=== PATIENT | female | born 1975 | race African-American/Black ===

== ENCOUNTER 2017-11-17 04:15 | Emergency (ER) | payer OTHER ==
[~2017-11-17] VITALS: Ht 152.4 cm; Wt 79.4 kg
[~2017-11-17 04:15] MED LIST: NEXIUM40 MG PO; PRILOSEC 20 MG20 MG
[2017-11-17 04:45] LABS: URINE BILIRUBIN NEGATIVE (Negative); URINE BLOOD NEGATIVE (Negative); URINE CLARITY CLEAR; URINE COLOR YELLOW; URINE GLUCOSE-RANDOM NEGATIVE (Negative); URINE KETONES NEGATIVE (Negative); URINE LEUKOCYTES-REFLEX NEGATIVE (Negative); URINE NITRITE-REFLEX NEGATIVE (Negative); URINE PROTEIN NEGATIVE (Negative); URINE UROBILINOGEN 0.2 E.U./dl (0.2-1.0)
[2017-11-17 04:47] LABS: ABSOLUTE EOSINOPHILS 0.1 thou/uL (0.0-0.7); ABSOLUTE LYMPHOCYTES 2.7 thou/uL (0.8-5.3); ABSOLUTE MONOCYTES 1.1 thou/uL (0.0-1.2); ABSOLUTE NEUTROPHILS 5.4 thou/uL (1.6-8.1); BASOPHILS 0.4 %; EOSINOPHILS 0.7 %; HEMOGLOBIN 12.7 gm/dL (12.0-15.0); LYMPHOCYTES 28.8 %; MCH 25.5 pg (26.0-34.0); MCHC 32.6 g/dL (28.0-37.0); MCV 78.2 fL (80.0-100.0); MONOCYTES 11.5 %; MPV 7.5 fl. (7.2-11.1); NUCLEATED RBCS 0 /100WBC; PLATELET COUNT* 265 thou/uL (150-400); POLYS 58.6 %; RBC 4.99 mil/uL (4.20-5.00); RDW-CV 14.4 % (10.5-14.5); WBC 9.3 thou/uL (4.0-11.0)
[2017-11-17 04:53] LABS: CALCIUM 8.6 mg/dL (8.5-10.1); POTASSIUM 3.8 mmol/L (3.5-5.1)
[2017-11-17 04:58] LABS: ALBUMIN 3.6 g/dL (3.4-5.0); TOTAL BILIRUBIN 0.3 mg/dL (<0.1-1.0); TOTAL PROTEIN 7.4 g/dL (6.4-8.2)
[2017-11-17] MEDS ORDERED: ZOFRAN ODT4 MG PO (06:56)
[2017-11-17] MEDS ORDERED: NORCO 5-325 TA1 EACH PO (06:56)
[2017-11-17 08:13] VITALS: BP 151/101
== END 2017-11-17 08:14 | disposition home or self-care (01) ==
LOC: M.ERS 04:15
PROVIDERS: Personal Emergency Response Attendant
DX: N13.30 Unspecified hydronephrosis (principal); R10.2 Pelvic and perineal pain; Z98.890 Other specified postprocedural states; Z90.49 Acquired absence of other specified parts of digestive tract

== ENCOUNTER 2018-11-05 03:40 | Emergency (ER) | payer OTHER ==
[~2018-11-05] VITALS: Ht 152.4 cm; Wt 81.2 kg
[~2018-11-05 03:40] MED LIST changes: +NORCO 5-325 TA1 EACH PO; +ZOFRAN ODT4 MG PO
[2018-11-05] MEDS ORDERED: VALIUM5 MG PO (04:21)
[2018-11-05] MEDS ORDERED: TORADOL 10 MG T10 MG PO (04:21)
[2018-11-05 04:26] VITALS: BP 159/70
== END 2018-11-05 04:28 | disposition home or self-care (01) ==
LOC: M.ERS 03:40
DX: M79.18 Myalgia, other site (principal); H92.02 Otalgia, left ear; L53.9 Erythematous condition, unspecified; M54.2 Cervicalgia; Z90.49 Acquired absence of other specified parts of digestive tract; Z98.890 Other specified postprocedural states

== ENCOUNTER 2019-12-09 04:34 | Emergency (ER) | payer OTHER ==
[~2019-12-09] VITALS: Ht 152.4 cm; Wt 77.1 kg
[~2019-12-09 04:34] MED LIST changes: +TORADOL 10 MG T10 MG PO; +VALIUM5 MG PO
[2019-12-09 04:59] LABS: URINE BILIRUBIN NEGATIVE (Negative); URINE BLOOD NEGATIVE (Negative); URINE CLARITY CLEAR; URINE COLOR YELLOW; URINE GLUCOSE-RANDOM NEGATIVE (Negative); URINE KETONES NEGATIVE (Negative); URINE LEUKOCYTES-REFLEX NEGATIVE (Negative); URINE NITRITE-REFLEX NEGATIVE (Negative); URINE PROTEIN NEGATIVE (Negative); URINE SPECIFIC GRAVITY 1.015 (1.005-1.030)
[2019-12-09 05:46] LABS: ABSOLUTE BASOPHILS 0.1 thou/uL (0.0-0.2); ABSOLUTE EOSINOPHILS 0.2 thou/uL (0.0-0.7); ABSOLUTE LYMPHOCYTES 2.4 thou/uL (0.8-5.3); ABSOLUTE MONOCYTES 1.1 thou/uL (0.0-1.2); ABSOLUTE NEUTROPHILS 6.5 thou/uL (1.6-8.1); BASOPHILS 0.9 %; HEMATOCRIT 39.2 % (37.0-47.0); HEMOGLOBIN 13.1 gm/dL (12.0-15.0); LYMPHOCYTES 23.2 %; MCH 25.9 pg (26.0-34.0); MCHC 33.4 g/dL (28.0-37.0); MCV 77.6 fL (80.0-100.0); MONOCYTES 10.4 %; MPV 7.8 fl. (7.2-11.1); NUCLEATED RBCS 0 /100WBC; PLATELET COUNT* 296 thou/uL (150-400); POLYS 63.5 %; RBC 5.05 mil/uL (4.20-5.00); RDW-CV 14.9 % (10.5-14.5); WBC 10.1 thou/uL (4.0-11.0)
[2019-12-09 05:59] LABS: CALCIUM 8.1 mg/dL (8.5-10.1)
[2019-12-09] MEDS ORDERED: FLAGYL500 M1 PO (09:14)
[2019-12-09] MEDS ORDERED: NORCO 5-325 TA1 EAC1 PO (09:14)
[2019-12-09] MEDS ORDERED: CIPROFLOXACIN500 M1 PO (09:14)
[2019-12-09 09:21] VITALS: BP 131/76
== END 2019-12-09 09:22 | disposition home or self-care (01) ==
LOC: M.ERS 04:34
PROVIDERS: Emergency Medicine
DX: N83.202 Unspecified ovarian cyst, left side (principal); K52.9 Noninfective gastroenteritis and colitis, unspecified; K21.9 Gastro-esophageal reflux disease without esophagitis; Z90.710 Acquired absence of both cervix and uterus; Z98.51 Tubal ligation status

== ENCOUNTER 2020-02-07 19:12 | Emergency (ER) | payer OTHER ==
[~2020-02-07] VITALS: Ht 152.4 cm; Wt 78.5 kg
[~2020-02-07 19:12] MED LIST changes: +CIPROFLOXACIN500 M1 PO; +FLAGYL500 M1 PO; +NORCO 5-325 TA1 EAC1 PO
[2020-02-07] MEDS ORDERED: PERCOCET 5-3251 EACH PO (19:31)
[2020-02-07 19:56] LABS: ABSOLUTE BASOPHILS 0.1 thou/uL (0.0-0.2); ABSOLUTE EOSINOPHILS 0.1 thou/uL (0.0-0.7); ABSOLUTE MONOCYTES 1.8 thou/uL (0.0-1.2); ABSOLUTE NEUTROPHILS 8.3 thou/uL (1.6-8.1); BASOPHILS 0.6 %; EOSINOPHILS 0.4 %; HEMATOCRIT 42.1 % (37.0-47.0); HEMOGLOBIN 14.3 gm/dL (12.0-15.0); LYMPHOCYTES 28.3 %; MCH 26.2 pg (26.0-34.0); MCHC 33.9 g/dL (28.0-37.0); MCV 77.2 fL (80.0-100.0); MONOCYTES 12.4 %; MPV 7.7 fl. (7.2-11.1); NUCLEATED RBCS 0 /100WBC; PLATELET COUNT* 472 thou/uL (150-400); POLYS 58.3 %; RBC 5.46 mil/uL (4.20-5.00); RDW-CV 14.3 % (10.5-14.5); WBC 14.3 thou/uL (4.0-11.0)
[2020-02-07 20:03] LABS: CALCIUM 8.9 mg/dL (8.5-10.1); CREATININE 1.1 mg/dL (0.6-1.3); POTASSIUM 3.2 mmol/L (3.5-5.1)
[2020-02-07] MEDS ORDERED: HYDROCODONE-ACE15 ML PO (21:37)
[2020-02-07] MEDS ORDERED: LIDOCAINE VISC100 ML SWISH&SPIT (22:00)
[2020-02-07 22:07] VITALS: BP 156/93
== END 2020-02-07 22:08 | disposition home or self-care (01) ==
LOC: M.ERS 19:12
PROVIDERS: Emergency Medicine
DX: K91.840 Postprocedural hemorrhage of a digestive system organ or structure following a digestive system procedure (principal); R42 Dizziness and giddiness; K21.9 Gastro-esophageal reflux disease without esophagitis; Z98.51 Tubal ligation status; Z98.890 Other specified postprocedural states; Z90.49 Acquired absence of other specified parts of digestive tract; Z90.710 Acquired absence of both cervix and uterus

== ENCOUNTER 2020-09-10 06:45 | Emergency (ER) | payer OTHER ==
[~2020-09-10] VITALS: Ht 162.6 cm; Wt 79.4 kg
[~2020-09-10 06:45] MED LIST changes: +HYDROCODONE-ACE15 ML PO; +LIDOCAINE VISC100 ML SWISH&SPIT; +PERCOCET 5-3251 EACH PO
[2020-09-10 07:13] LABS: ABSOLUTE EOSINOPHILS 0.3 thou/uL (0.0-0.7); ABSOLUTE LYMPHOCYTES 2.4 thou/uL (0.8-5.3); ABSOLUTE MONOCYTES 0.9 thou/uL (0.0-1.2); ABSOLUTE NEUTROPHILS 4.1 thou/uL (1.6-8.1); BASOPHILS 0.5 %; EOSINOPHILS 3.8 %; HEMATOCRIT 39.8 % (37.0-47.0); LYMPHOCYTES 30.8 %; MCH 26.1 pg (26.0-34.0); MCHC 32.6 g/dL (28.0-37.0); MCV 80.1 fL (80.0-100.0); MONOCYTES 11.9 %; MPV 7.3 fl. (7.2-11.1); NUCLEATED RBCS 0 /100WBC; PLATELET COUNT* 305 thou/uL (150-400); RBC 4.97 mil/uL (4.20-5.00); RDW-CV 14.5 % (10.5-14.5); WBC 7.7 thou/uL (4.0-11.0)
[2020-09-10 07:18] LABS: CALCIUM 8.2 mg/dL (8.5-10.1); CREATININE 0.9 mg/dL (0.6-1.3); POTASSIUM 3.6 mmol/L (3.5-5.1)
[2020-09-10 07:20] LABS: PROTIME 10.4 Seconds (9.20-11.50)
[2020-09-10 07:29] LABS: ALBUMIN 3.8 g/dL (3.4-5.0); TOTAL BILIRUBIN 0.6 mg/dL (<0.1-1.0); TOTAL PROTEIN 7.4 g/dL (6.4-8.2)
[2020-09-10 08:37] VITALS: BP 170/91
--- NOTE | 2020-09-10 11:10 | EKG ---
[place] [address] ELECTROCARDIOGRAM REPORT Name: RITA LUGO Room: [facility]#: [id number] Admission: 09/10/20 Attend Phys: Discharge: 09/10/20 Date of : 79 Date of Service: 09/10/20 0650 Report #: [id number] THIS REPORT FOR: //name// [facility] Test Date: 2020-09-10 Test Time: 06:50:44 Pat Name: RITA LUGO Department: Room: Gender: F Travel Registered Nurse Pacu: CESAR : 1975 Requested By: Alana Shea Order Number: [id number] MD: Crispin Barney Measurements Intervals [place] Rate: 71 P: 32 ME: 173 QRS: 30 QRSD: 91 T: 33 QT: 412 QTc: 448 Interpretive Statements Sinus rhythm Compared to ECG 01/25/2017 00:37:53 No significant changes Electronically Signed On 09-10-2020 11:10:27 [employer] by Crispin Barney [email or web address] <ELECTRONICALLY SIGNED> By: Crispin Barney MD, LOCATED WITHIN [facility] 09/10/20 1110 0650 0650 Crispin Barney MD, LOCATED [facility]IN [facility] /EPI
== END 2020-09-10 08:37 | disposition home or self-care (01) ==
LOC: M.ERS 06:45
PROVIDERS: Emergency Medicine
DX: K21.00 Gastro-esophageal reflux disease with esophagitis, without bleeding (principal); R07.89 Other chest pain; Z98.51 Tubal ligation status; Z98.890 Other specified postprocedural states; Z90.49 Acquired absence of other specified parts of digestive tract; Z90.711 Acquired absence of uterus with remaining cervical stump; Z90.89 Acquired absence of other organs; Z79.899 Other long term (current) drug therapy